=== PATIENT | male | born 1955 | race Caucasian/White ===

== ENCOUNTER 2018-06-12 10:30 | Emergency (ER) | payer MEDICAID ==
[2018-06-12] MEDS ORDERED: NS(*) 0.9% 1000 ML BAG 1,000 ML IV ONE (10:35)
[2018-06-12] MEDS ORDERED: ASPIRIN 81 MG CHEW PO ONE (10:35)
--- NOTE | 2018-06-12 10:39 | ER Report ---
History and Physical Time Seen By MD: 10:37 HPI/ROS CHIEF COMPLAINT: Police eval HISTORY OF PRESENT ILLNESS: 62-year-old male who was brought in by local police department for reported called him sitting outside of his van hitting tennis balls at passing cars evidently per report of EMS correction police van was very disheveled in his urine and feces present patient is alert and oriented 4 has no focal complaints of any kind says he's been drinking alcohol pretty much in a daily basis admitted drinking this morning several beers patient denies any drug use patient denies any falls or trauma said he was just hanging out whack and tennis balls at passing by cars. Patient denies chest pain shortness of breath nausea vomiting diarrhea fever chills says he is eating appropriately though says he drinks alcohol daily and has drank this morning patient has no additional complaints at this time REVIEW OF SYSTEMS: Respiratory: No cough, no dyspnea. Cardiovascular: No chest pain, no palpitations. Gastrointestinal: No vomiting, no abdominal pain. Musculoskeletal: No back pain. Remainder of the 14 system rev: Yes Allergies: Coded Allergies: UNABLE TO OBTAIN (Unverified , 06/12/18) Home Meds Reported Medications Cetirizine Hcl (CETIRIZINE HCL) 10 Mg Tablet, 10 MG PO QDAY, TAB 06/12/18 Zolpidem Tartrate (AMBIEN) 10 Mg Tablet, 1 TAB PO QHS, TAB 06/12/18 Reviewed Nurses Notes: Yes Old Medical Records Reviewed: Yes Constitutional Vital Sign - Last 24 Hours 06/12/18 10:32 Temp 99.6 Pulse 112 Resp 20 B/P (MAP) 115/59 Pulse Ox 92 O2 Delivery Room Air Physical Exam General Appearance: [The patient is alert, has no immediate need for airway protection and no current signs of toxicity.] Alert and oriented 4 Eyes: Pupils equal and round no injection. Respiratory: Chest is non tender, lungs are clear to auscultation. Cardiac: regular rate and rhythm [ ] Gastrointestinal: Abdomen is soft and non tender, no masses, bowel sounds normal. Musculoskeletal: Neck: Neck is supple and non tender. Extremities have full range of motion and are non tender. Skin: No rashes or lesions. [ ] DIFFERENTIAL DIAGNOSIS: After history and physical exam differential diagnosis was considered for alcohol intoxication DKA diabetes hypovolemia hypoglycemia psychiatric issues Medical Decision Making Data Points Result Diagram: 06/12/18 1050 06/12/18 1050 Laboratory Hematology Test 06/12/18 10:50 Red Blood Count 5.16 M/uL (4.00-5.60) Mean Corpuscular Volume 88.4 fL (80.0-96.0) Mean Corpuscular Hemoglobin 30.9 pg (26.0-33.0) Mean Corpuscular Hemoglobin Concent 35.0 g/dL (32.0-36.0) Red Cell Distribution Width 13.6 % (11.5-14.5) Mean Platelet Volume 7.4 fL (7.2-11.1) Neutrophils (%) (Auto) 62.6 % (39.4-72.5) Lymphocytes (%) (Auto) 22.5 % (17.6-49.6) Monocytes (%) (Auto) 11.5 % (4.1-12.4) Eosinophils (%) (Auto) 2.6 % (0.4-6.7) Basophils (%) (Auto) 0.8 % (0.3-1.4) Nucleated RBC Relative Count (auto) 0.0 /100WBC Neutrophils # (Auto) 4.7 K/uL (2.0-7.4) Lymphocytes # (Auto) 1.7 K/uL (1.3-3.6) Monocytes # (Auto) 0.9 K/uL (0.3-1.0) Eosinophils # (Auto) 0.2 K/uL (0.0-0.5) Basophils # (Auto) 0.1 K/uL (0.0-0.1) Nucleated RBC Absolute Count (auto) 0.00 K/uL D-Dimer Quantitative (PE/DVT) 0.75 ug/ml (0-0.50) Sodium Level 137 mmol/L (137-145) Potassium Level 4.0 mmol/L (3.5-5.0) Chloride Level 99 mmol/L (98-107) Carbon Dioxide Level 27 mmol/L (22-30) Blood Urea Nitrogen 21 mg/dl (9-21) Creatinine 0.90 mg/dl (0.66-1.25) Glomerular Filtration Rate Calc > 60.0 Random Glucose 114 mg/dl (75-110) Calcium Level 9.8 mg/dl (8.4-10.2) Total Bilirubin 0.8 mg/dl (0.2-1.3) Aspartate Amino Transf (AST/SGOT) 33 U/L (0-35) Alanine Aminotransferase (ALT/SGPT) 50 U/L (0-56) Alkaline Phosphatase 63 U/L (0-126) Troponin I < 0.012 ng/ml Total Protein 7.3 g/dl (6.3-8.2) Albumin 4.4 g/dl (3.5-5.0) Serum Alcohol < 10 mg/dl Chemistry Test 06/12/18 10:50 White Blood Count 7.5 k/uL (4.5-11.0) Red Blood Count 5.16 M/uL (4.00-5.60) Hemoglobin 16.0 g/dL (14.0-18.0) Hematocrit 45.6 % (42.0-52.0) Mean Corpuscular Volume 88.4 fL (80.0-96.0) Mean Corpuscular Hemoglobin 30.9 pg (26.0-33.0) Mean Corpuscular Hemoglobin Concent 35.0 g/dL (32.0-36.0) Red Cell Distribution Width 13.6 % (11.5-14.5) Platelet Count 259 K/uL (150-450) Mean Platelet Volume 7.4 fL (7.2-11.1) Neutrophils (%) (Auto) 62.6 % (39.4-72.5) Lymphocytes (%) (Auto) 22.5 % (17.6-49.6) Monocytes (%) (Auto) 11.5 % (4.1-12.4) Eosinophils (%) (Auto) 2.6 % (0.4-6.7) Basophils (%) (Auto) 0.8 % (0.3-1.4) Nucleated RBC Relative Count (auto) 0.0 /100WBC Neutrophils # (Auto) 4.7 K/uL (2.0-7.4) Lymphocytes # (Auto) 1.7 K/uL (1.3-3.6) Monocytes # (Auto) 0.9 K/uL (0.3-1.0) Eosinophils # (Auto) 0.2 K/uL (0.0-0.5) Basophils # (Auto) 0.1 K/uL (0.0-0.1) Nucleated RBC Absolute Count (auto) 0.00 K/uL D-Dimer Quantitative (PE/DVT) 0.75 ug/ml (0-0.50) Glomerular Filtration Rate Calc > 60.0 Calcium Level 9.8 mg/dl (8.4-10.2) Total Bilirubin 0.8 mg/dl (0.2-1.3) Aspartate Amino Transf (AST/SGOT) 33 U/L (0-35) Alanine Aminotransferase (ALT/SGPT) 50 U/L (0-56) Alkaline Phosphatase 63 U/L (0-126) Troponin I < 0.012 ng/ml Total Protein 7.3 g/dl (6.3-8.2) Albumin 4.4 g/dl (3.5-5.0) Serum Alcohol < 10 mg/dl Coagulation Test 06/12/18 10:50 D-Dimer Quantitative (PE/DVT) 0.75 ug/ml Toxicology Test 06/12/18 10:50 Serum Alcohol < 10 mg/dl ED Course/Re-evaluation ED Course ED clinical course medical decision making 62-year-old male brought here by police for evaluation who is fitting tennis balls out of the side of his van traffic no positivity and his alcohol level is workup is essentially negative elevated d-dimer I scanned his chest showed no sign of pulmonary emboli no real abnormalities of any kind Baseline labs performed he's been alert and oriented 4 throughout his stay here wants to go home police will escorted back to his vehicle and by discharge diagnosis eval Decision to Disposition Date: Jun 12, 2018 Decision to Disposition Time: 12:34 Depart Departure Latest Vital Signs Vital Signs Date Time Temp Pulse Resp B/P (MAP) Pulse Ox O2 Delivery O2 Flow Rate FiO2 06/12/18 10:32 99.6 112 20 115/59 92 Room Air Impression: Primary Impression: Confusion Condition: Improved Disposition: HOME OR SELF-CARE Patient Instructions: Abuse of Alcohol (DC) KRISH ZHENG MD Jun 12, 2018 10:39
--- NOTE | 2018-06-12 10:43 | EKG ---
[place] [facility] [place] RODRIGO SANTACRUZ : [id number] MR: [id number] V: [id number] EXAM DATE: ORDERING PHYSICIAN: KRISH ZHENG TECHNOLOGIST: DAVID Morton Reason : Blood Pressure : / mmHG Vent. Rate : 112 BPM Atrial Rate : 112 BPM P-R Int : 122 ms QRS Dur : 084 ms QT Int : 334 ms P-R-T Axes : 046 051 066 degrees QTc Int : 455 ms Sinus tachycardia Nonspecific ST findings inferior leads No previous ECGs available Confirmed by CAMMIE ANGUIANO ([id number] on 06/12/2018 2:47:42 PM Referred By: MARCE Confirmed By:CAMMIE ANGUIANO
[2018-06-12] MEDS ORDERED: CETI-169 PO (11:02)
[2018-06-12] MEDS ORDERED: ZOLP-350 PO (11:02)
[2018-06-12 11:03] LABS: PLATELET COUNT, AUTOMATED 259 K/uL (150-450)
[2018-06-12] MEDS ORDERED: IOPAMIDOL 76% 75 ML INFUS BTL 75 ML ONE (11:27)
[2018-06-12] MEDS ORDERED: NS(*) 0.9% 50 ML BAG 50 ML ONE (11:27)
--- NOTE | 2018-06-12 12:28 | RADIOLOGY IMAGING REPORT ---
[place] [facility] [place] NAME: eGra Adams : 1955 MR: [id number] V: [id number] EXAM DATE: ORDERING PHYSICIAN: KRISH ZHENG TECHNOLOGIST: Location: [facility] [place] Patient: Gera Adams : 1955 Visit/Account:[id number] Date of Sevice: 06/12/2018 CT ANGIOGRAM OF THE CHEST WITH INTRAVENOUS CONTRAST, PE PROTOCOL DATE OF EXAM: 06/12/2018 11:14 COMPARISON: Chest radiographs of the same day. INDICATION: Tachycardia. TECHNIQUE: Contrast enhanced chest CT performed during the injection of 75 ml of Isovue-370. Three-d imensional (MIP) reconstructions were performed. FINDINGS: There is no pulmonary arterial embolus. Thyroid: Unremarkable with imaging degraded by photon attenuation from the left arm. Thoracic inlet: No adenopathy. Heart and great vessels: Heart size is normal. Coronary atherosclerosis is prominent, especially in the LAD distribution. Mediastinum and michael: No mediastinal or hilar adenopathy. Lungs and pleura: No effusion, consolidation, or pneumothorax. Mild scattered atelectasis. Mild bron chial wall thickening. Breast and axilla: Breast tissue is unremarkable. No alysia axillary adenopathy. Bones and soft tissues: Multilevel degenerative findings in the thoracic spine. Upper abdomen: Unremarkable. IMPRESSION: Negative for pulmonary artery embolus. One of the following dose optimization techniques was utilized in the performance of this exam: Autom ated exposure control; adjustment of the mA and/or kV according to the patient's size; or use of an i terative reconstruction technique. Specific details can be referenced in the facility's radiology C T exam operational policy. Report Dictated By: Marilee Henning MD at 06/12/2018 12:10 PM Report E-Signed By: Marilee Henning MD at 06/12/2018 12:24 PM WSN:[id number]
[2018-06-12 12:30] VITALS: BP 109/77
--- NOTE | 2018-06-12 12:49 | RADIOLOGY IMAGING REPORT ---
FACILITY: [facility] PATIENT NAME: Gera Adams : 1955 MR: [id number] V: [id number] EXAM DATE: ORDERING PHYSICIAN: KRISH ZHENG TECHNOLOGIST: Location: [facility] Patient: Gera Adams : 1955 Visit/Account:[id number] Date of Sevice: 06/12/2018 EXAMINATION: PA and Lateral Chest 06/12/2018 10:35 AM HISTORY: Chest pain, cough COMPARISON: Subsequent CTA chest for PE is reported separately. FINDINGS: Cardiomediastinal contours: Normal Lungs and pleura: Linear markings in the left base over an elevated hemidiaphragm. Vasculature is no rmal. Costophrenic angles are sharp. Bones/soft tissues: Normal IMPRESSION: Markings in the left base associated with an elevated hemidiaphragm. Atelectasis or scar ring would be favored over infiltrate. Report Dictated By: Marvin Parnell MD at 06/12/2018 12:43 PM Report E-Signed By: Marvin Parnell MD at 06/12/2018 12:44 PM WSN:[id number]
== END 2018-06-12 12:59 | disposition home or self-care (01) ==
LOC: ER 10:40
DX: R41.0 Disorientation, unspecified (principal); R00.0 Tachycardia, unspecified
CPT/HCPCS: 71046; 71275; 84484; 85025; 85379; 93005; 96360; 99284; G0480; J7030; J7050; Q9967; 80320; 82040; 82247; 82310; 82374; 82435; 82565; 82947; 84075; 84132; 84155; 84295; 84450; 84460; 84520